=== PATIENT | female | born 1950 | race Hispanic/Latino ===

== ENCOUNTER 2021-11-29 06:14 | Observation (INO) | payer OTHER ==
[2021-11-26 13:03] LABS: BASOPHILS % (AUTO) 0.8 % (0.0-5.0); HEMATOCRIT 40.4 % (36-48); LYMPHOCYTES % (AUTO) 41.6 % (21.0-51.0); MEAN CORPUSCULAR HEMOGLOBIN 30.4 pg (27.0-33.0); MEAN CORPUSCULAR HGB CONC 32.2 g/dL (32.0-36.0); MEAN CORPUSCULAR VOLUME 94.6 fL (79-99); MONOCYTES % (AUTO) 4.7 % (3.0-13.0); NEUTROPHILS % (AUTO) 48.5 % (40.0-77.0); PLATELET COUNT (AUTO) 247 K/uL (130-400); RED BLOOD CELL COUNT(AUTO) 4.27 MIL/uL (4.00-5.50); RED CELL DISTRIBUTION WIDTH 13.2 % (11.0-15.5); WHITE BLOOD COUNT (AUTO) 11.7 K/uL (4.8-10.8)
[2021-11-26 13:09] LABS: APPEARANCE,URINE CLEAR (CLEAR); BILIRUBIN,URINE NEGATIVE (NEGATIVE); COLOR,URINE YELLOW (YELLOW); GLUCOSE, URINE (UA) NEGATIVE (NEGATIVE); KETONES,URINE NEGATIVE (NEGATIVE); LEUKOCYTE ESTERASE ,URINE NEGATIVE (NEGATIVE); NITRATE,URINE NEGATIVE (NEGATIVE); OCCULT BLOOD,URINE NEGATIVE (NEGATIVE); PROTEIN,URINE 30 mg/dL (NEGATIVE); UROBILINOGEN,URINE 0.2 mg/dL (0.2-1.0)
[2021-11-26 13:13] LABS: CREATININE 0.7 mg/dL (0.5-1.5); POTASSIUM 4.5 mmol/L (3.5-5.1)
[2021-11-26 13:16] LABS: INR 0.96 (0.85-1.15); PROTHROMBIN TIME 10.5 SEC (9.6-11.6)
[2021-11-26 13:28] LABS: BACTERIA,URINE Few /HPF (None Seen)
[2021-11-26 13:29] LABS: RBC,URINE 0-1 /HPF (0-1); WBC,URINE 0-1 /HPF (0-1)
[2021-11-29] VITALS (24 sets, daily range): BP systolic 136–190; BP diastolic 70–84
[~2021-11-29] VITALS: Ht 154.9 cm; Wt 103.0 kg
[2021-11-29] MEDS: CEFAZOLIN SODIUM 1 GM VIAL IVP SCH ×3 (06:00→20:13)
[~2021-11-29 06:14] MED LIST: ATOR40TA71 PO; HYDR12.54 PO; LOSA100T58 PO; METF-444 PO; OMEP40CA21 PO
[2021-11-29] MEDS ORDERED: 0.9%NACL 1000ML 1,000 ML IV ONE (06:24)
[2021-11-29] MEDS ORDERED: METOCLOPRAMIDE 10 MG/2 ML VIAL ONE (08:33)
[2021-11-29] MEDS ORDERED: KETOROLAC 15MG/ML VIAL (15MG/ML) ONE (08:33)
[2021-11-29] MEDS ORDERED: ACETAMINOPHEN 500 MG TABLET ONE (08:33)
[2021-11-29] MEDS ORDERED: CELECOXIB 200 MG CAP ONE (08:34)
[2021-11-29] MEDS ORDERED: TRANEXAMIC ACID 1000MG/10ML ONE ×2 (08:49→13:52)
[2021-11-29] MEDS ORDERED: CEFAZOLIN SODIUM 1 GM VIAL ONE (08:49)
[2021-11-29] MEDS ORDERED: LIDOCAINE PF 100MG/5ML (2%) SYRINGE 5ML ONE ×2 (10:56→10:57)
[2021-11-29] MEDS ORDERED: PROPOFOL 10 MG/ML 20ML VIAL IV ONE (10:56)
[2021-11-29] MEDS ORDERED: DEXAMETHASONE SOD PHOSPHATE 10MG/ML 1ML VIAL ONE (10:56)
[2021-11-29] MEDS ORDERED: ONDANSETRON 4MG INJ ONE (10:56)
[2021-11-29] MEDS ORDERED: SUCCINYLCHOLINE CHLORIDE 20 MG/ML 10 ML VIAL ONE (10:56)
[2021-11-29] MEDS ORDERED: GLYCOPYRROLATE 1 MG/5 ML SYRINGE ONE (10:56)
[2021-11-29] MEDS ORDERED: SUCCINYLCHOLINE 200MG/10ML SYR ONE (10:56)
[2021-11-29] MEDS ORDERED: FENTANYL CITRATE PF 50 MCG/1 ML 2ML VIAL ONE ×2 (10:57→12:12)
[2021-11-29] MEDS ORDERED: MIDAZOLAM HCL 1 MG/ML 2ML VIAL ONE (10:57)
[2021-11-29] MEDS ORDERED: NEOSTIGMINE 5MG/5ML SYR IV ONE (10:57)
[2021-11-29] MEDS ORDERED: ROCURONIUM 10MG/1ML SYR 10 MG/ML ML ONE ×3 (10:57→12:12)
[2021-11-29] MEDS ORDERED: ROPIVACAINE 0.5% 5MG/ML 30ML IJ ONE (11:05)
[2021-11-29] MEDS ORDERED: CEFAZOLIN SODIUM 1 GM VIAL IRRIG ONE (12:00)
[2021-11-29] MEDS ORDERED: MEPERIDINE-PF 25 MG/ML SYG ONE ×2 (13:10→14:19)
[2021-11-29] MEDS: 0.9%NACL 1000ML 1,000 ML IV SCH ×2 (14:00→20:13)
[2021-11-29] MEDS ORDERED: OXYCODONE HCL 5 MG TAB PO PRN (14:00)
[2021-11-29] MEDS ORDERED: LIDOCAINE HCL-MPF 1% 2ML VIAL IV PRN (14:00)
[2021-11-29] MEDS ORDERED: CALCIUM CARB 500MG PO PRN (14:00)
[2021-11-29] MEDS ORDERED: FERROUS FUMARATE 324 MG TABLET PO PRN (14:00)
[2021-11-29] MEDS ORDERED: ONDANSETRON 4MG INJ IVP PRN (14:00)
[2021-11-29] MEDS ORDERED: KETOROLAC 15MG/ML VIAL (15MG/ML) IV PRN (14:00)
[2021-11-29] MEDS ORDERED: DiphenhydrAMINE HCL 50 MG/ML VIAL IVP PRN (14:00)
[2021-11-29] MEDS ORDERED: POTASSIUM CHLORIDE 10% ELIXIR 20 MEQ/15 ML UDCUP PO PRN (14:00)
[2021-11-29] MEDS ORDERED: KCL 20 MEQ ERTAB PO PRN (14:00)
[2021-11-29] MEDS ORDERED: TEMAZEPAM 15 MG CAPSULE PO PRN (14:00)
[2021-11-29] MEDS ORDERED: POTASSIUM CHLORIDE 20MEQ/100ML 100 ML IV PRN (14:00)
[2021-11-29] MEDS: ACETAMINOPHEN 500 MG TABLET PO SCH ×2 (14:00→20:25)
[2021-11-29] MEDS ORDERED: TRAMADOL HCL 50 MG TABLET PO PRN (14:00)
[2021-11-29] MEDS: INSULIN HUMULIN R 100 UNIT/ML 3ML SQ SCH ×2 (16:30→20:46)
[2021-11-29] MEDS: OXYCODONE HCL 5 MG TAB PO PRN (17:23)
[2021-11-29] MEDS: CELECOXIB 200 MG CAP PO SCH (20:13)
[2021-11-29] MEDS: PREGABALIN 25 MG CAP PO SCH (20:13)
[2021-11-29] MEDS: ASPIRIN 81 MG EC TAB PO SCH (20:13)
[2021-11-29] MEDS: ATORVASTATIN 40 MG TABLET PO SCH (20:42)
[2021-11-30] MEDS: CEFAZOLIN SODIUM 1 GM VIAL IVP SCH (02:46)
[2021-11-30] MEDS: OXYCODONE HCL 5 MG TAB PO PRN ×3 (02:47→22:47)
[2021-11-30 03:20] VITALS: BP 177/80
[2021-11-30 04:43] LABS: MEAN CORPUSCULAR HEMOGLOBIN 29.8 pg (27.0-33.0); MEAN CORPUSCULAR HGB CONC 31.1 g/dL (32.0-36.0); MEAN CORPUSCULAR VOLUME 95.6 fL (79-99); RED BLOOD CELL COUNT(AUTO) 3.66 MIL/uL (4.00-5.50); RED CELL DISTRIBUTION WIDTH 13.2 % (11.0-15.5)
[2021-11-30 05:05] LABS: CREATININE 0.8 mg/dL (0.5-1.5); POTASSIUM 4.9 mmol/L (3.5-5.1)
[2021-11-30] MEDS: ACETAMINOPHEN 500 MG TABLET PO SCH ×3 (05:40→22:48)
[2021-11-30] MEDS: INSULIN HUMULIN R 100 UNIT/ML 3ML SQ SCH ×4 (07:30→22:55)
[2021-11-30 08:07] VITALS: BP 174/77
[2021-11-30] MEDS: HYDROCHLOROTHIAZIDE 25 MG TABLET PO SCH (08:37)
[2021-11-30] MEDS: PANTOPRAZOLE 40 MG TAB DR PO SCH (08:37)
[2021-11-30] MEDS: METFORMIN HCL 500 MG TABLET PO SCH ×2 (08:37→17:27)
[2021-11-30] MEDS: POLYETHYLENE GLYCOL 3350 17 GM POWD.PACK PO SCH (08:37)
[2021-11-30] MEDS: ASPIRIN 81 MG EC TAB PO SCH ×2 (08:37→20:00)
[2021-11-30] MEDS: PREGABALIN 25 MG CAP PO SCH ×2 (08:37→19:59)
[2021-11-30] MEDS: CELECOXIB 200 MG CAP PO SCH ×2 (08:37→19:57)
[2021-11-30] MEDS: 0.9%NACL 1000ML 1,000 ML IV SCH (10:00)
[2021-11-30 11:28] VITALS: BP 168/66
[2021-11-30 16:55] VITALS: BP 198/84
[2021-11-30] MEDS ORDERED: HYDRALAZINE 25MG TABLET PO PRN (17:30)
[2021-11-30] MEDS ORDERED: PHARMACY COMMUNICATION MISC SCH (18:00)
[2021-11-30] MEDS: ATORVASTATIN 40 MG TABLET PO SCH (19:58)
[2021-11-30 20:23] VITALS: BP 197/83
[2021-11-30] MEDS ORDERED: LOSARTAN 100 MG TABLET PO SCH (21:00)
[2021-11-30 23:40] VITALS: BP 180/79
[2021-12-01 03:39] VITALS: BP 174/81
[2021-12-01] MEDS: OXYCODONE HCL 5 MG TAB PO PRN ×2 (06:22→11:22)
[2021-12-01] MEDS: INSULIN HUMULIN R 100 UNIT/ML 3ML SQ SCH ×3 (06:23→16:29)
[2021-12-01] MEDS: ACETAMINOPHEN 500 MG TABLET PO SCH ×2 (06:23→14:25)
[2021-12-01 08:05] VITALS: BP 160/74
[2021-12-01] MEDS: HYDROCHLOROTHIAZIDE 25 MG TABLET PO SCH (08:26)
[2021-12-01] MEDS: POLYETHYLENE GLYCOL 3350 17 GM POWD.PACK PO SCH (08:29)
[2021-12-01] MEDS: METFORMIN HCL 500 MG TABLET PO SCH ×2 (08:30→16:28)
[2021-12-01] MEDS: PANTOPRAZOLE 40 MG TAB DR PO SCH (08:30)
[2021-12-01] MEDS: ASPIRIN 81 MG EC TAB PO SCH (08:31)
[2021-12-01] MEDS: CELECOXIB 200 MG CAP PO SCH (08:31)
[2021-12-01] MEDS: PREGABALIN 25 MG CAP PO SCH (08:31)
[2021-12-01] MEDS ORDERED: LOSARTAN 100 MG TABLET PO SCH (09:00)
[2021-12-01 11:11] VITALS: BP 158/65
[2021-12-01 16:06] VITALS: BP 156/68
[2021-12-01] MEDS ORDERED: AEC81 PO (17:09)
[2021-12-01] MEDS ORDERED: HYDR-4060 PO (17:09)
[2021-12-02] MEDS ORDERED: BISACODYL 10 MG SUPP.RECT RC PRN (14:00)
== END 2021-12-01 19:00 | disposition home or self-care (01) ==
LOC: DAH 06:14 → DAHIP 06:15 → DAH 06:15 → 4AH 15:10
PROVIDERS: ADMIT Orthopaedic Surgery; ATTEND Orthopaedic Surgery
DX: M17.11 Unilateral primary osteoarthritis, right knee (principal); Z20.822 Contact with and (suspected) exposure to COVID-19; M25.561 Pain in right knee; D64.9 Anemia, unspecified; I10 Essential (primary) hypertension; E11.42 Type 2 diabetes mellitus with diabetic polyneuropathy; E78.5 Hyperlipidemia, unspecified; E11.9 Type 2 diabetes mellitus without complications; E66.01 Morbid (severe) obesity due to excess calories; G62.9 Polyneuropathy, unspecified; Z79.4 Long term (current) use of insulin; Z79.82 Long term (current) use of aspirin; Z79.84 Long term (current) use of oral hypoglycemic drugs; Z90.49 Acquired absence of other specified parts of digestive tract; Z79.899 Other long term (current) drug therapy; Z98.890 Other specified postprocedural states; Z68.41 Body mass index [BMI] 40.0-44.9, adult
CPT/HCPCS: 27447; 36415 ×2; 64447; 76942; 80048 ×2; 81001; 82948 ×9; 85025; 85027; 85610; 87088; 87635; 87641; 93005; 96372 ×3; 96374; 96375; 96376; 97039 ×4; 97116 ×4; 97161; 97530 ×3; A4215; A4221; A4222; A4223; A4600; A4649 ×5; A4663; A5120; A9272; C1776; C9803; G0378 ×51; J0330 ×2; J0690 ×5; J1100; J1815 ×5; J1885 ×2; J2001 ×2; J2175 ×2; J2250; J2405; J2704; J2710; J2765; J2795; J3010 ×2; J3490 ×3; J7030 ×2

== ENCOUNTER 2022-01-14 20:37 | Emergency (ER) | payer OTHER ==
[~2022-01-14] VITALS: Ht 157.5 cm; Wt 98.4 kg
[~2022-01-14 20:37] MED LIST changes: +AEC81 PO; +HYDR-4060 PO
[2022-01-14] MEDS ORDERED: ONDANSETRON 4MG INJ IVP ONE (21:00)
[2022-01-14] MEDS ORDERED: MORPHINE 2 MG SYG IM ONE (21:00)
[2022-01-14 21:47] LABS: BASOPHILS % (AUTO) 0.7 % (0.0-5.0); EOSINOPHILS % (AUTO) 1.9 % (0.0-8.0); MEAN CORPUSCULAR HEMOGLOBIN 30.9 pg (27.0-33.0); MEAN CORPUSCULAR HGB CONC 32.5 g/dL (32.0-36.0); MONOCYTES % (AUTO) 5.3 % (3.0-13.0); NEUTROPHILS % (AUTO) 72.6 % (40.0-77.0); PLATELET COUNT (AUTO) 242 K/uL (130-400); RED BLOOD CELL COUNT(AUTO) 3.79 MIL/uL (4.00-5.50); RED CELL DISTRIBUTION WIDTH 13.5 % (11.0-15.5); WHITE BLOOD COUNT (AUTO) 12.2 K/uL (4.8-10.8)
[2022-01-14 21:59] LABS: POTASSIUM 4.3 mmol/L (3.5-5.1)
[2022-01-14 22:04] LABS: ALBUMIN 3.4 g/dL (3.5-5.0); BILIRUBIN,TOTAL 0.3 mg/dL (0.2-1.0); TOTAL PROTEIN, SERUM 7.1 g/dL (6.0-8.3)
[2022-01-14 22:56] LABS: ERYTHROCYTE SEDIMENTATION RATE 45 MM/HR (0-30)
[2022-01-14] MEDS ORDERED: CEFAZOLIN SODIUM 1 GM VIAL IVP STA (23:59)
[2022-01-15] MEDS ORDERED: CEPH500B PO (00:10)
[2022-01-15] MEDS ORDERED: MORPHINE 2 MG SYG IVP ONE (00:30)
[2022-01-15] MEDS ORDERED: TRAM-355 PO (00:56)
[2022-01-15] MEDS ORDERED: MORPHINE 2 MG SYG IM ONE (01:00)
[2022-01-15 01:12] VITALS: BP 145/82
[2022-01-18] MEDS ORDERED: GABA-529 PO (15:13)
[2022-01-18] MEDS ORDERED: IBUP-2070 PO (15:13)
== END 2022-01-15 01:13 | disposition home or self-care (01) ==
LOC: EDH 20:37
DX: S80.02XA Contusion of left knee, initial encounter (principal); S89.91XA Unspecified injury of right lower leg, initial encounter; L03.115 Cellulitis of right lower limb; E11.9 Type 2 diabetes mellitus without complications; I10 Essential (primary) hypertension; K21.9 Gastro-esophageal reflux disease without esophagitis; Z79.899 Other long term (current) drug therapy; Z96.651 Presence of right artificial knee joint; W18.39XA Other fall on same level, initial encounter; Y93.89 Activity, other specified; Y92.89 Other specified places as the place of occurrence of the external cause; Y99.8 Other external cause status
CPT/HCPCS: 36415; 73562; 73590; 80053; 84146; 85025; 85651; 96372 ×2; 96374; 96375 ×2; 99284; J0690; J2405

== ENCOUNTER 2022-01-19 10:53 | Observation (INO) | payer OTHER ==
[2022-01-18 15:06] LABS: BASOPHILS % (AUTO) 0.9 % (0.0-5.0); HEMATOCRIT 33.2 % (36-48); LYMPHOCYTES % (AUTO) 31.2 % (21.0-51.0); MEAN CORPUSCULAR HEMOGLOBIN 30.8 pg (27.0-33.0); MEAN CORPUSCULAR HGB CONC 31.9 g/dL (32.0-36.0); MEAN CORPUSCULAR VOLUME 96.5 fL (79-99); NEUTROPHILS % (AUTO) 57.5 % (40.0-77.0); PLATELET COUNT (AUTO) 245 K/uL (130-400); RED BLOOD CELL COUNT(AUTO) 3.44 MIL/uL (4.00-5.50); RED CELL DISTRIBUTION WIDTH 13.8 % (11.0-15.5); WHITE BLOOD COUNT (AUTO) 9.3 K/uL (4.8-10.8)
[2022-01-18 15:14] VITALS: BP 220/81
[2022-01-18 15:18] LABS: APPEARANCE,URINE Clear (CLEAR); BILIRUBIN,URINE Negative (NEGATIVE); COLOR,URINE Yellow (YELLOW); GLUCOSE, URINE (UA) TRACE mg/dL (NEGATIVE); KETONES,URINE Trace mg/dL (NEGATIVE); LEUKOCYTE ESTERASE ,URINE Small (NEGATIVE); NITRATE,URINE Negative (NEGATIVE); OCCULT BLOOD,URINE Negative (NEGATIVE); PH,URINE 5.5 (5.0-8.0); PROTEIN,URINE POS 1+ mg/dL (NEGATIVE)
[2022-01-18 15:19] LABS: POTASSIUM 4.2 mmol/L (3.5-5.1)
[2022-01-18 15:20] LABS: INR 0.93 (0.85-1.15); PROTHROMBIN TIME 9.9 SEC (9.6-11.6)
[2022-01-18 15:54] LABS: BACTERIA,URINE Rare /HPF (None Seen); RBC,URINE 0-1 /HPF (0-1); SQUAMOUS EPITHELIAL CELL,UR Few /HPF (0-2)
[2022-01-18 15:55] LABS: HYALINE CASTS, URINE 0-1 /LPF (0-1 /LPF)
[2022-01-19] VITALS (31 sets, daily range): BP systolic 155–195; BP diastolic 51–93
[~2022-01-19] VITALS: Ht 157.5 cm; Wt 102.5 kg
[~2022-01-19 10:53] MED LIST changes: -AEC81 PO; +CEPH500B PO; +GABA-529 PO; +IBUP-2070 PO
[2022-01-19] MEDS ORDERED: 0.9%NACL 1000ML 1,000 ML IV ONE (12:09)
[2022-01-19] MEDS: CEFAZOLIN SODIUM 1 GM VIAL IVP SCH ×3 (14:00→22:49)
[2022-01-19] MEDS ORDERED: FENTANYL CITRATE PF 50 MCG/1 ML 2ML VIAL ONE ×3 (14:09→16:08)
[2022-01-19] MEDS ORDERED: ROCURONIUM 10MG/1ML SYR 10 MG/ML ML ONE (14:09)
[2022-01-19] MEDS ORDERED: GLYCOPYRROLATE 1 MG/5 ML SYRINGE ONE (14:09)
[2022-01-19] MEDS ORDERED: PROPOFOL 10 MG/ML 20ML VIAL IV ONE ×2 (14:09→17:07)
[2022-01-19] MEDS ORDERED: LIDOCAINE PF 100MG/5ML (2%) SYRINGE 5ML ONE (14:09)
[2022-01-19] MEDS ORDERED: ROPIVACAINE 0.5% 5MG/ML 30ML IJ ONE (14:11)
[2022-01-19] MEDS ORDERED: FAMOTIDINE 20MG VIAL IV ONE (14:11)
[2022-01-19] MEDS ORDERED: ONDANSETRON 4MG INJ ONE (14:57)
[2022-01-19] MEDS ORDERED: CEFAZOLIN SODIUM 1 GM VIAL IRRIG ONE (15:35)
[2022-01-19] MEDS ORDERED: HYDROMORPHONE 1 MG INJ ONE ×2 (16:39→18:22)
[2022-01-19] MEDS ORDERED: NEOSTIGMINE 5MG/5ML SYR IV ONE (17:03)
[2022-01-19] MEDS ORDERED: FERROUS FUMARATE 324 MG TABLET PO PRN (17:30)
[2022-01-19] MEDS ORDERED: KCL 20 MEQ ERTAB PO PRN (17:30)
[2022-01-19] MEDS ORDERED: DiphenhydrAMINE HCL 50 MG/ML VIAL IVP PRN (17:30)
[2022-01-19] MEDS ORDERED: POTASSIUM CHLORIDE 20MEQ/100ML 100 ML IV PRN (17:30)
[2022-01-19] MEDS ORDERED: PROMETHAZINE HCL 25 MG/ML 1ML AMPULE IM PRN (17:30)
[2022-01-19] MEDS: 0.9%NACL 1000ML 1,000 ML IV SCH (17:30)
[2022-01-19] MEDS ORDERED: LIDOCAINE HCL-MPF 1% 2ML VIAL IV PRN (17:30)
[2022-01-19] MEDS ORDERED: CALCIUM CARB 500MG PO PRN (17:30)
[2022-01-19] MEDS ORDERED: POTASSIUM CHLORIDE 10% ELIXIR 20 MEQ/15 ML UDCUP PO PRN (17:30)
[2022-01-19] MEDS ORDERED: DIPHENHYDRAMINE HCL 25 MG CAPSULE PO PRN (17:30)
[2022-01-19] MEDS ORDERED: HYDROCODONE/ACETAMINOPHEN 5/325 MG TAB PO PRN (17:30)
[2022-01-19] MEDS ORDERED: MEPERIDINE-PF 25 MG/ML SYG ONE ×2 (17:52→18:14)
[2022-01-19] MEDS ORDERED: LABETALOL 20MG SYG IV ONE (18:23)
[2022-01-19] MEDS ORDERED: HYDRALAZINE 20MG/ML VIAL ONE (18:55)
[2022-01-19] MEDS ORDERED: IBUPROFEN 600 MG TABLET PO PRN (20:30)
[2022-01-19] MEDS ORDERED: FAMOTIDINE 20MG TAB PO SCH (21:00)
[2022-01-19] MEDS: INSULIN HUMULIN R 100 UNIT/ML 3ML SQ SCH (21:00)
[2022-01-19] MEDS: ATORVASTATIN 40 MG TABLET PO SCH (22:48)
[2022-01-20] VITALS (8 sets, daily range): BP systolic 114–183; BP diastolic 67–79
[2022-01-20] MEDS: HYDROCODONE/ACETAMINOPHEN 5/325 MG TAB PO PRN ×4 (00:31→17:23)
[2022-01-20] MEDS: GABAPENTIN 100 MG CAPSULE PO PRN ×2 (00:32→21:04)
[2022-01-20] MEDS: KETOROLAC 15MG/ML VIAL (15MG/ML) IV PRN ×2 (03:40→21:06)
[2022-01-20 04:05] LABS: HEMATOCRIT 30.1 % (36-48); MEAN CORPUSCULAR HEMOGLOBIN 30.4 pg (27.0-33.0); MEAN CORPUSCULAR HGB CONC 31.9 g/dL (32.0-36.0); MEAN CORPUSCULAR VOLUME 95.3 fL (79-99); RED BLOOD CELL COUNT(AUTO) 3.16 MIL/uL (4.00-5.50); RED CELL DISTRIBUTION WIDTH 14.1 % (11.0-15.5); WHITE BLOOD COUNT (AUTO) 13.2 K/uL (4.8-10.8)
[2022-01-20 04:12] LABS: CREATININE 0.7 mg/dL (0.5-1.5)
[2022-01-20] MEDS: CEFAZOLIN SODIUM 1 GM VIAL IVP SCH (06:19)
[2022-01-20] MEDS: INSULIN HUMULIN R 100 UNIT/ML 3ML SQ SCH ×4 (06:20→21:00)
[2022-01-20] MEDS: 0.9%NACL 1000ML 1,000 ML IV SCH ×2 (06:23→10:31)
[2022-01-20] MEDS: METFORMIN HCL 500 MG TABLET PO SCH ×2 (08:35→17:03)
[2022-01-20] MEDS: ENOXAPARIN SODIUM 40 MG/0.4 ML SYRINGE SQ SCH (08:35)
[2022-01-20] MEDS: PANTOPRAZOLE 40 MG TAB DR PO SCH (08:35)
[2022-01-20] MEDS: POLYETHYLENE GLYCOL 3350 17 GM POWD.PACK PO SCH (08:35)
[2022-01-20] MEDS: HYDROCHLOROTHIAZIDE 25 MG TABLET PO SCH (08:36)
[2022-01-20] MEDS: LOSARTAN 100 MG TABLET PO SCH (08:38)
[2022-01-20] MEDS ORDERED: NON-FORMULARY MEDICATION 1 EACH (Omeprazole 40 MG) PO SCH (09:00)
[2022-01-20] MEDS: PSYLLIUM SEED 1 EACH PACKET PO SCH (11:38)
[2022-01-20] MEDS: ATORVASTATIN 40 MG TABLET PO SCH (21:04)
[2022-01-21 00:05] VITALS: BP 146/77
[2022-01-21 04:08] LABS: HEMATOCRIT 31.9 % (36-48); MEAN CORPUSCULAR HEMOGLOBIN 30.3 pg (27.0-33.0); MEAN CORPUSCULAR HGB CONC 31.7 g/dL (32.0-36.0); MEAN CORPUSCULAR VOLUME 95.8 fL (79-99); RED BLOOD CELL COUNT(AUTO) 3.33 MIL/uL (4.00-5.50); RED CELL DISTRIBUTION WIDTH 13.7 % (11.0-15.5); WHITE BLOOD COUNT (AUTO) 12.3 K/uL (4.8-10.8)
[2022-01-21 04:21] VITALS: BP 160/67
[2022-01-21 04:26] LABS: CREATININE 0.8 mg/dL (0.5-1.5); POTASSIUM 4.4 mmol/L (3.5-5.1)
[2022-01-21] MEDS: INSULIN HUMULIN R 100 UNIT/ML 3ML SQ SCH ×4 (06:39→21:00)
[2022-01-21] MEDS: HYDROCODONE/ACETAMINOPHEN 5/325 MG TAB PO PRN ×2 (06:41→12:26)
[2022-01-21 08:00] VITALS: BP 149/53
[2022-01-21] MEDS: HYDROCHLOROTHIAZIDE 25 MG TABLET PO SCH (08:50)
[2022-01-21] MEDS: KETOROLAC 15MG/ML VIAL (15MG/ML) IV PRN ×2 (08:50→19:33)
[2022-01-21] MEDS: METFORMIN HCL 500 MG TABLET PO SCH ×2 (08:50→18:05)
[2022-01-21] MEDS: POLYETHYLENE GLYCOL 3350 17 GM POWD.PACK PO SCH (08:51)
[2022-01-21] MEDS: PANTOPRAZOLE 40 MG TAB DR PO SCH (08:51)
[2022-01-21] MEDS: LOSARTAN 100 MG TABLET PO SCH (08:51)
[2022-01-21] MEDS: ENOXAPARIN SODIUM 40 MG/0.4 ML SYRINGE SQ SCH (08:58)
[2022-01-21 12:00] VITALS: BP 154/72
[2022-01-21] MEDS: PSYLLIUM SEED 1 EACH PACKET PO SCH (12:02)
[2022-01-21] MEDS: GABAPENTIN 100 MG CAPSULE PO PRN (12:03)
[2022-01-21 16:00] VITALS: BP 159/76
[2022-01-21] MEDS ORDERED: BISACODYL 5 MG TABLET.DR PO PRN (17:30)
[2022-01-21] MEDS: ATORVASTATIN 40 MG TABLET PO SCH (19:32)
[2022-01-21 21:02] VITALS: BP 161/74
[2022-01-22 00:06] VITALS: BP 145/65
[2022-01-22 04:27] VITALS: BP 171/74
[2022-01-22] MEDS: HYDROCODONE/ACETAMINOPHEN 5/325 MG TAB PO PRN ×2 (04:33→09:41)
[2022-01-22 06:11] LABS: HEMATOCRIT 35.3 % (36-48); MEAN CORPUSCULAR HEMOGLOBIN 30.5 pg (27.0-33.0); MEAN CORPUSCULAR HGB CONC 31.2 g/dL (32.0-36.0); MEAN CORPUSCULAR VOLUME 97.8 fL (79-99); RED BLOOD CELL COUNT(AUTO) 3.61 MIL/uL (4.00-5.50); RED CELL DISTRIBUTION WIDTH 13.5 % (11.0-15.5); WHITE BLOOD COUNT (AUTO) 9.9 K/uL (4.8-10.8)
[2022-01-22 06:22] LABS: CREATININE 0.8 mg/dL (0.5-1.5)
[2022-01-22] MEDS: INSULIN HUMULIN R 100 UNIT/ML 3ML SQ SCH ×2 (06:34→12:29)
[2022-01-22 08:00] VITALS: BP 165/71
[2022-01-22] MEDS: POLYETHYLENE GLYCOL 3350 17 GM POWD.PACK PO SCH (09:40)
[2022-01-22] MEDS: LOSARTAN 100 MG TABLET PO SCH (09:40)
[2022-01-22] MEDS: HYDROCHLOROTHIAZIDE 25 MG TABLET PO SCH (09:40)
[2022-01-22] MEDS: METFORMIN HCL 500 MG TABLET PO SCH (09:40)
[2022-01-22] MEDS: PANTOPRAZOLE 40 MG TAB DR PO SCH (09:41)
[2022-01-22] MEDS: ENOXAPARIN SODIUM 40 MG/0.4 ML SYRINGE SQ SCH (09:41)
[2022-01-22 12:00] VITALS: BP 149/63
[2022-01-22] MEDS: PSYLLIUM SEED 1 EACH PACKET PO SCH (12:27)
[2022-01-22] MEDS: GABAPENTIN 100 MG CAPSULE PO PRN (12:27)
[2022-01-22] MEDS ORDERED: HYDR-4060 PO (16:07)
[2022-01-22] MEDS ORDERED: AEC81 PO (16:07)
== END 2022-01-22 17:35 ==
LOC: DAH 10:53 → DAHIP 10:54 → 4AH 19:47
PROVIDERS: ADMIT Orthopaedic Surgery; ATTEND Orthopaedic Surgery
DX: S82.151A Displaced fracture of right tibial tuberosity, initial encounter for closed fracture (principal); Z20.822 Contact with and (suspected) exposure to COVID-19; D62 Acute posthemorrhagic anemia; E11.42 Type 2 diabetes mellitus with diabetic polyneuropathy; E78.5 Hyperlipidemia, unspecified; I10 Essential (primary) hypertension; E66.01 Morbid (severe) obesity due to excess calories; Z96.651 Presence of right artificial knee joint; Z79.899 Other long term (current) drug therapy; X58.XXXA Exposure to other specified factors, initial encounter; Y93.89 Activity, other specified; Y92.89 Other specified places as the place of occurrence of the external cause
CPT/HCPCS: 10140; 27381; 27540; 36415 ×4; 73562; 80048 ×4; 81001; 82948 ×12; 85025; 85027 ×3; 85610; 87088; 87635; 87641; 93005; 96372 ×2; 96374; 96375; 96376 ×3; 97039 ×6; 97116 ×6; 97161; A4215; A4221; A4222; A4223; A4649; A4663; A4930; A5120; A6223; A6450; C1713; C1762; C9803; G0378 ×69; J0360; J0690 ×4; J1170 ×2; J1650 ×3; J1815 ×2; J1885 ×4; J2001; J2175 ×2; J2405; J2704 ×2; J2710; J2795; J3010 ×3; J3490 ×2; J7030; J7120

== ENCOUNTER → 2023-03-15 | Outpatient (CLI) | payer OTHER ==
[~2023-03-15] MED LIST changes: +AEC81 PO; -CEPH500B PO; -IBUP-2070 PO; -LOSA100T58 PO; +LOSA100T59 PO
== END | disposition home or self-care (01) ==
LOC: RAH 11:03
PROVIDERS: ATTEND Orthopaedic Surgery
DX: I70.202 Unspecified atherosclerosis of native arteries of extremities, left leg (principal); M17.12 Unilateral primary osteoarthritis, left knee
CPT/HCPCS: 93926

== ENCOUNTER → 2023-03-27 | Outpatient (CLI) | payer OTHER | END | disposition home or self-care (01) | LOC: RAH 13:45 | PROVIDERS: ATTEND Orthopaedic Surgery | DX: M17.12 Unilateral primary osteoarthritis, left knee (principal); M25.762 Osteophyte, left knee; M25.862 Other specified joint disorders, left knee | CPT/HCPCS: 73700 ==

== ENCOUNTER 2023-04-04 05:41 | Observation (INO) | payer OTHER ==
[2023-03-30 13:15] LABS: BASOPHILS # (AUTO) 0.09 K/uL (0.00-0.20); BASOPHILS % (AUTO) 0.8 % (0.0-5.0); EOSINOPHILS # (AUTO) 0.42 K/uL (0.00-0.70); EOSINOPHILS % (AUTO) 3.7 % (0.0-8.0); HEMATOCRIT 40.9 % (36-48); IMMATURE GRANULOCYTE ABSOLUTE 0.03 K/uL (0-1); LYMPHOCYTES # (AUTO) 4.4 K/uL (1.0-4.8); LYMPHOCYTES % (AUTO) 38.4 % (21.0-51.0); MEAN CORPUSCULAR HEMOGLOBIN 30.3 pg (27.0-33.0); MEAN CORPUSCULAR HGB CONC 32.5 g/dL (32.0-36.0); MEAN CORPUSCULAR VOLUME 93.2 fL (79-99); MONOCYTES # (AUTO) 0.5 K/uL (0.1-1.0); MONOCYTES % (AUTO) 4.3 % (3.0-13.0); NEUTROPHILS % (AUTO) 52.5 % (40.0-77.0); PLATELET COUNT (AUTO) 246 K/uL (130-400); RED BLOOD CELL COUNT(AUTO) 4.39 MIL/uL (4.00-5.50); RED CELL DISTRIBUTION WIDTH 14.3 % (11.0-15.5); WHITE BLOOD COUNT (AUTO) 11.3 K/uL (4.8-10.8)
[2023-03-30 13:24] LABS: CREATININE 0.8 mg/dL (0.5-1.5); POTASSIUM 4.5 mmol/L (3.5-5.1)
[2023-03-30 13:29] LABS: INR < 0.93 (0.85-1.15); PROTHROMBIN TIME 10.1 SEC (9.6-11.6)
[2023-03-30 16:02] VITALS: BP_SYST 194; BP_SYST 206; BP_SYST 210; BP_DIAS 65; BP_DIAS 78; BP_DIAS 90; PULSE 74; RESP 19
[~2023-04-04] VITALS: Ht 160 cm; Wt 102.5 kg
[2023-04-04] VITALS (34 sets, daily range): BP systolic 131–190; BP diastolic 54–92; PULSE 67–87; RESP 14–20; O2SAT 98–100
[~2023-04-04 05:41] MED LIST changes: -AEC81 PO; -HYDR-4060 PO; -HYDR12.54 PO
[2023-04-04] MEDS ORDERED: 0.9%NACL 1000ML 1,000 ML IV ONE (06:14)
[2023-04-04] MEDS ORDERED: ROCURONIUM 10MG/1ML SYR 10 MG/ML ML ONE (06:53)
[2023-04-04] MEDS ORDERED: LIDOCAINE PF 100MG/5ML (2%) SYRINGE 5ML ONE (06:53)
[2023-04-04] MEDS ORDERED: PROPOFOL 10 MG/ML 20ML VIAL IV ONE (06:53)
[2023-04-04] MEDS ORDERED: KETAMINE 50MG/ML SYRINGE 50 MG/ML DISP.SYRIN ONE (06:57)
[2023-04-04] MEDS ORDERED: ROPIVACAINE 0.5% 5MG/ML 30ML IJ ONE (06:57)
[2023-04-04] MEDS: CEFAZOLIN SODIUM 2 GM VIAL ONE ×2 (07:03→08:01)
[2023-04-04] MEDS ORDERED: XALA2.5OS OU (07:07)
[2023-04-04] MEDS ORDERED: TRAM50TA4 PO (07:07)
[2023-04-04] MEDS ORDERED: NAPR-1023 PO (07:07)
[2023-04-04] MEDS ORDERED: PHENYLEPHRINE HCL 10 MG/ML 1ML VIAL IV ONE (08:06)
[2023-04-04] MEDS ORDERED: TRANEXAMIC ACID 1000MG/10ML ONE (08:11)
[2023-04-04] MEDS ORDERED: FENTANYL CITRATE PF 50 MCG/1 ML 2ML VIAL ONE ×2 (08:18→09:30)
[2023-04-04] MEDS ORDERED: GLYCOPYRROLATE 1 MG/5 ML SYRINGE ONE (09:12)
[2023-04-04] MEDS ORDERED: ONDANSETRON 4MG INJ ONE (09:12)
[2023-04-04] MEDS ORDERED: NEOSTIGMINE 5MG/5ML SYR IV ONE (09:12)
[2023-04-04] MEDS ORDERED: KETOROLAC 30MG VIAL (30MG/ML) ONE (09:13)
[2023-04-04] MEDS ORDERED: FERROUS FUMARATE 324 MG TABLET PO PRN (10:00)
[2023-04-04] MEDS ORDERED: POTASSIUM CHLORIDE 20MEQ/100ML 100 ML IV PRN (10:00)
[2023-04-04] MEDS ORDERED: MORPHINE 4 MG SYG IVP PRN (10:00)
[2023-04-04] MEDS ORDERED: POTASSIUM CHLORIDE 10% ELIXIR 20 MEQ/15 ML UDCUP PO PRN (10:00)
[2023-04-04] MEDS ORDERED: KCL 20 MEQ ERTAB PO PRN (10:00)
[2023-04-04] MEDS: 0.9%NACL 1000ML 1,000 ML IV SCH ×2 (10:00→20:00)
[2023-04-04] MEDS ORDERED: HYDROCODONE/ACETAMINOPHEN 5/325 MG TAB PO PRN (10:00)
[2023-04-04] MEDS ORDERED: ONDANSETRON 4MG INJ IVP PRN (10:00)
[2023-04-04] MEDS: ACETAMINOPHEN 1,000 MG/100 ML VIAL IV SCH ×3 (10:13→22:54)
[2023-04-04] MEDS ORDERED: MEPERIDINE-PF 25 MG/ML SYG ONE (10:18)
[2023-04-04] MEDS: CEFAZOLIN SODIUM 2 GM VIAL IVPB SCH ×2 (16:10→23:00)
[2023-04-04] MEDS: IBUPROFEN 800MG + NS 250ML IV SCH ×2 (16:10→22:54)
[2023-04-04] MEDS: METFORMIN HCL 500 MG TABLET PO SCH (17:49)
[2023-04-04] MEDS: ASPIRIN 81 MG EC TAB PO SCH (20:35)
[2023-04-04] MEDS ORDERED: FAMOTIDINE 20MG TAB PO SCH (21:00)
[2023-04-04] MEDS: LATANOPROST 2.5 ML DROPS OU SCH (21:00)
[2023-04-05] VITALS (10 sets, daily range): BP systolic 149–209; BP diastolic 69–88; PULSE 67–88; RESP 17–20; O2SAT 96–99
[2023-04-05] MEDS ORDERED: CEFAZOLIN SODIUM 2 GM VIAL ONE (00:11)
[2023-04-05 04:06] LABS: MEAN CORPUSCULAR HEMOGLOBIN 30.5 pg (27.0-33.0); MEAN CORPUSCULAR HGB CONC 32.1 g/dL (32.0-36.0); MEAN CORPUSCULAR VOLUME 95.1 fL (79-99); RED BLOOD CELL COUNT(AUTO) 3.47 MIL/uL (4.00-5.50); WHITE BLOOD COUNT (AUTO) 11.2 K/uL (4.8-10.8)
[2023-04-05 04:15] LABS: CREATININE 1.2 mg/dL (0.5-1.5); POTASSIUM 4.9 mmol/L (3.5-5.1)
[2023-04-05] MEDS: IBUPROFEN 800MG + NS 250ML IV SCH (05:00)
[2023-04-05] MEDS: 0.9%NACL 1000ML 1,000 ML IV SCH (06:00)
[2023-04-05] MEDS: HYDROCODONE/ACETAMINOPHEN 10/325 MG TAB PO PRN ×3 (08:20→19:07)
[2023-04-05] MEDS: LOSARTAN 100 MG TABLET PO SCH (09:24)
[2023-04-05] MEDS: GABAPENTIN 100 MG CAPSULE PO SCH (09:24)
[2023-04-05] MEDS: ASPIRIN 81 MG EC TAB PO SCH ×2 (09:24→19:51)
[2023-04-05] MEDS: METFORMIN HCL 500 MG TABLET PO SCH ×2 (09:24→16:32)
[2023-04-05] MEDS: POLYETHYLENE GLYCOL 3350 17 GM POWD.PACK PO SCH (09:25)
[2023-04-05] MEDS: PANTOPRAZOLE 40 MG TAB DR PO SCH (09:25)
[2023-04-05] MEDS: INSULIN HUMULIN R 100 UNIT/ML 3ML SQ SCH ×6 (11:30→19:52)
[2023-04-05] MEDS ORDERED: CALDOLOR 800MG+NS 250ML 250 ML IV ONE (12:00)
[2023-04-05] MEDS ORDERED: HYDRALAZINE 20MG/ML VIAL ONE (13:30)
[2023-04-05] MEDS ORDERED: ALPRAZOLAM 0.5 MG TABLET PO SCH (16:30)
[2023-04-05] MEDS: LATANOPROST 2.5 ML DROPS OU SCH (19:52)
[2023-04-05] MEDS: FAMOTIDINE 20MG TAB PO SCH (19:52)
[2023-04-06] VITALS (8 sets, daily range): BP systolic 138–168; BP diastolic 30–80; PULSE 90–103; RESP 17–20; O2SAT 97–98
[2023-04-06] MEDS: HYDRALAZINE 20MG/ML VIAL IV PRN ×2 (00:35→21:41)
[2023-04-06] MEDS: HYDROCODONE/ACETAMINOPHEN 10/325 MG TAB PO PRN ×4 (01:05→17:09)
[2023-04-06] MEDS: INSULIN HUMULIN R 100 UNIT/ML 3ML SQ SCH ×8 (05:42→20:26)
[2023-04-06 05:51] LABS: BASOPHILS # (AUTO) 0.08 K/uL (0.00-0.20); BASOPHILS % (AUTO) 0.6 % (0.0-5.0); EOSINOPHILS # (AUTO) 0.37 K/uL (0.00-0.70); EOSINOPHILS % (AUTO) 2.6 % (0.0-8.0); HEMATOCRIT 35.9 % (36-48); IMMATURE GRANULOCYTE ABSOLUTE 0.18 K/uL (0-1); LYMPHOCYTES # (AUTO) 3.2 K/uL (1.0-4.8); LYMPHOCYTES % (AUTO) 21.9 % (21.0-51.0); MEAN CORPUSCULAR HEMOGLOBIN 29.9 pg (27.0-33.0); MEAN CORPUSCULAR HGB CONC 31.2 g/dL (32.0-36.0); NEUTROPHILS # (AUTO) 9.6 K/uL (1.8-7.7); NEUTROPHILS % (AUTO) 66.6 % (40.0-77.0); PLATELET COUNT (AUTO) 191 K/uL (130-400); RED BLOOD CELL COUNT(AUTO) 3.74 MIL/uL (4.00-5.50); RED CELL DISTRIBUTION WIDTH 14.2 % (11.0-15.5); WHITE BLOOD COUNT (AUTO) 14.4 K/uL (4.8-10.8)
[2023-04-06 06:05] LABS: ALBUMIN 2.7 g/dL (3.5-5.0); BILIRUBIN,TOTAL 0.5 mg/dL (0.2-1.0); CREATININE 0.8 mg/dL (0.5-1.5); MAGNESIUM 1.7 mg/dL (1.80-2.40); POTASSIUM 4.3 mmol/L (3.5-5.1); TOTAL PROTEIN, SERUM 6.7 g/dL (6.0-8.3)
[2023-04-06] MEDS ORDERED: MAGNESIUM 2GM PREMIX 50ML 50 ML IV ONE (06:20)
[2023-04-06] MEDS ORDERED: MAGNESIUM 2GM PREMIX 50ML 50 ML IV PRN (06:30)
[2023-04-06] MEDS: LOSARTAN 100 MG TABLET PO SCH (08:34)
[2023-04-06] MEDS: METFORMIN HCL 500 MG TABLET PO SCH ×2 (08:34→17:04)
[2023-04-06] MEDS: PANTOPRAZOLE 40 MG TAB DR PO SCH (08:35)
[2023-04-06] MEDS: ASPIRIN 81 MG EC TAB PO SCH ×2 (08:35→20:21)
[2023-04-06] MEDS: GABAPENTIN 100 MG CAPSULE PO SCH (08:35)
[2023-04-06] MEDS: POLYETHYLENE GLYCOL 3350 17 GM POWD.PACK PO SCH (09:00)
[2023-04-06] MEDS: FAMOTIDINE 20MG TAB PO SCH (20:21)
[2023-04-06] MEDS: LATANOPROST 2.5 ML DROPS OU SCH (20:22)
[2023-04-07] VITALS: BP 148/42; PULSE 102; RESP 20
[2023-04-07 04:00] VITALS: BP 152/62; PULSE 114; RESP 20
[2023-04-07] MEDS: HYDROCODONE/ACETAMINOPHEN 10/325 MG TAB PO PRN ×4 (04:39→16:53)
[2023-04-07] MEDS: INSULIN HUMULIN R 100 UNIT/ML 3ML SQ SCH ×6 (05:26→16:30)
[2023-04-07 07:30] VITALS: O2SAT 97
[2023-04-07 07:36] VITALS: BP 151/58; PULSE 101; RESP 18
[2023-04-07] MEDS: PANTOPRAZOLE 40 MG TAB DR PO SCH (08:03)
[2023-04-07] MEDS: LOSARTAN 100 MG TABLET PO SCH (08:03)
[2023-04-07] MEDS: ASPIRIN 81 MG EC TAB PO SCH (08:03)
[2023-04-07] MEDS: METFORMIN HCL 500 MG TABLET PO SCH ×2 (08:03→16:53)
[2023-04-07] MEDS: POLYETHYLENE GLYCOL 3350 17 GM POWD.PACK PO SCH (08:04)
[2023-04-07] MEDS: GABAPENTIN 100 MG CAPSULE PO SCH (08:49)
[2023-04-07] MEDS ORDERED: METOPROLOL TARTRATE 25 MG TAB PO ONE (09:30)
[2023-04-07] MEDS ORDERED: BISACODYL 10 MG SUPP.RECT RC PRN (10:00)
[2023-04-07 10:49] VITALS: BP 139/45; PULSE 101; RESP 18
[2023-04-07] MEDS ORDERED: ENOX30DI4 SQ (12:54)
[2023-04-07 15:53] VITALS: BP 142/56; PULSE 102; RESP 18
[2023-04-08] MEDS ORDERED: METOPROLOL TARTRATE 25 MG TAB PO SCH (09:00)
[2023-04-08] MEDS ORDERED: ENOXAPARIN SODIUM 30 MG/0.3 ML SQ SCH (09:00)
== END 2023-04-07 19:00 | disposition home health service (06) ==
LOC: DAH 05:41 → DAHIP 06:42 → 4BH 12:58
PROVIDERS: ADMIT Orthopaedic Surgery; ATTEND Orthopaedic Surgery
DX: M17.12 Unilateral primary osteoarthritis, left knee (principal); G89.18 Other acute postprocedural pain; E66.01 Morbid (severe) obesity due to excess calories; I10 Essential (primary) hypertension; E11.9 Type 2 diabetes mellitus without complications; E78.5 Hyperlipidemia, unspecified; Z68.41 Body mass index [BMI] 40.0-44.9, adult; Z79.899 Other long term (current) drug therapy
CPT/HCPCS: 80048 ×2; 85025 ×2; 85610; 85730; 36415 ×3; 93005 ×2; 87641; 64447; 27447; 96376 ×2; 96365; 96366 ×3; 96375 ×2; 96368; 82948 ×15; 97161; 97039 ×8; 96372 ×3; 85027; 97116 ×5; 96367; 83735; 80053; 97530; C1776 ×4; G0378 ×76; J7030 ×2; J3010 ×2; J3490 ×3; J2710; J2001; J2704; J2405 ×2; J2270; J1885; J2175; J2795; J2371; J1741 ×3; J0690 ×3; A6223; G0168; A4649 ×2; A6212; A5120; A4215; A4223; A4222; A4221; A4663; J0360 ×3; J1815 ×5; J3475